=== PATIENT | male | born 1990 | race Two or more races ===

== ENCOUNTER → 2017-10-03 | Outpatient (CLI) | payer OTHER ==
[~2017-10-03] VITALS: Ht 160 cm; Wt 82.3 kg
[~2017-10-03] MED LIST: CHLORHEXIDINE GLUCONATE 2 % 1 PACK (2 CLOTHS) TOPICAL PRN; DEXAMETHASONE SOD PHOS 4 MG/ML VIAL IV ONE; DO NOT ADM ANY ANTICOAGULANT DRUGS PRN; ESMOLOL HCL 100 MG/10 ML VIAL IV ONE; GABA300C5 PO; GLYCOPYRROLATE 1 MG/5 ML SYRINGE IV PUSH ONE; HYDR-3516 PO; INSULIN HUMAN REGULAR 1,000 UNITS/10 ML VIAL SQ PRN; KETAMINE HCL 500 MG/5 ML VIAL ONE; LACTATED RINGER'S 1000 ML IV PRN; LIDOCAINE HCL 1% PF 5 ML AMPULE OTHER ONE; METOPROLOL TARTRATE 25 MG TAB PO PRN; OMEP40CA2 PO; ONDANSETRON HCL 4 MG/2 ML VIAL IV PUSH ONE; OXYT3.9D TOP; PHENYLEPH/NS 1000 MCG/10 ML SYR IV ONE; POVIDONE IODINE 5% (ANTISEPSIS KIT) 4 APPLICATIONS EACH NARE PRN; PROPOFOL 200 MG/20 ML AMP IV ONE; ROCURONIUM INJ 50 MG/5 ML SYRINGE IV PUSH ONE; SODIUM CHLORID 0.9% 500 ML IV PRN; SUGAMMADEX SODIUM 200 MG/2 ML VIAL IV PUSH ONE; TOVI4TAB PO; VITA20003 PO
--- NOTE | 2017-10-03 16:52 | GIPROC ---
[facility] [address] [facility]. [facility], [address] EGD PROCEDURE REPORT EXAM DATE: 10/03/2017 PATIENT NAME: Deandre Rodrigues MR #: [id number] BIRTHDATE: 1990 ATTENDING: Dustin Valdivia MD ORDER #: [id number] WEB UI DESIGNER: STATUS: outpatient INDICATIONS: The patient is a 27 yr old male here for an EGD due to periumbilical abdominal pain PROCEDURE PERFORMED: EGD w/ biopsy MEDICATIONS: Per Anesthesia and None. (General) TOPICAL ANESTHETIC: none CONSENT: The patient understands the risks and benefits of the procedure and understands that these risks include, but are not limited to: sedation, allergic reaction, infection, perforation and/or bleeding. Alternative means of evaluation and treatment include, among others: physical exam, x-rays, and/or surgical intervention. The patient elects to proceed with this endoscopic procedure. medical equipment was checked for proper function. Hand hygiene and appropriate measures for infection prevention was taken. After the risks, benefits and alternatives of the procedure were thoroughly explained, Informed consent was verified, confirmed and timeout was successfully executed by the treatment team. The patient was anesthetized with topical anesthesia and the Pentax EG-[id number] endoscope was introduced through the mouth and advanced to the third portion of the duodenum. Retroflexion was performed and was normal The gastroscope was then slowly withdrawn and removed. ESOPHAGUS: GE jx was at 35 cm. There was a short stricture at the gastroesophageal junction. The stricture was traversable with resistance. Multiple biopsies were taken in the distal and mid esophagus to rule out eosinophilic esophagitis. STOMACH: The mucosa of the stomach appeared normal. DUODENUM: The duodenal mucosa appeared normal. Cold forcep biopsies were taken in the 3rd portion. ADVERSE EVENTS: There were no complications. IMPRESSIONS: 1. GE jx was at 35 cm 2. There was a short stricture at the gastroesophageal junction; multiple biopsies were taken in the distal and mid esophagus to rule out eosinophilic esophagitis 3. The mucosa of the stomach appeared normal 4. Normal duodenal mucosa 5. Retroflexion was performed and was normal RECOMMENDATIONS: Colon today PATIENT CONDITION: stable DISPOSITION: Home REPEAT EXAM: Dustin Valdivia MD eSigned: Dustin Valdivia MD 10/03/2017 4:51 PM cc: PATIENT NAME: Deandre Rodrigues MR#: [id number]
--- NOTE | 2017-10-03 17:19 | GIPROC ---
[facility] [address] [facility]. [facility], [address] COLONOSCOPY PROCEDURE REPORT EXAM DATE: 10/03/2017 PATIENT NAME: Deandre Rodrigues MR #: [id number] BIRTHDATE: 1990 ENDOSCOPIST: Dustin Valdivia MD ORDER #: [id number] SHIFT STACKER: STATUS: outpatient INDICATIONS: The patient is a 27 yr old male here for a colonoscopy due to periumbilical abdominal pain and change in bowel habits PROCEDURE PERFORMED: Colonoscopy with biopsy MEDICATIONS: Per Anesthesia and None. PREP QUALITY: fair PREP TYPE:GoLytely ESTIMATED BLOOD LOSS: None CONSENT: The patient understands the risks and benefits of the procedure and understands that these risks include, but are not limited to: sedation, allergic reaction, infection, perforation and/or bleeding. Alternative means of evaluation and treatment include, among others: physical exam, x-rays, and/or surgical intervention. The patient elects to proceed with this endoscopic procedure. medical equipment was checked for proper function. Hand hygiene and appropriate measures for infection prevention was taken. After the risks, benefits and alternatives of the procedure were thoroughly explained, Informed consent was verified, confirmed and timeout was successfully executed by the treatment team. A digital exam was performed and revealed no abnormalities of the rectum The Pentax [id number] endoscope was introduced through the anus and advanced to the terminal ileum which was intubated for a short distance. The instrument was then slowly withdrawn as the colon was fully examined. COLON FINDINGS: The colonic mucosa appeared normal. Multiple biopsies were performed using cold forceps. Small internal hemorrhoids were found. Retroflexion was performed and was normal The scope was then completely withdrawn from the patient and the procedure terminated. PROCEDURE WITHDRAWAL TIME:13minutes ADVERSE EVENTS: There were no complications. IMPRESSIONS: 1. The colonic mucosa appeared normal; multiple biopsies were performed using cold forceps 2. Small internal hemorrhoids 3. Retroflexion was performed and was normal 4. Was performed 5. Revealed no abnormalities of the rectum RECOMMENDATIONS: 1. Await biopsy results. Biopsy results will not be ready for 7-10 days. If you don't hear from us in two weeks, call our office for results. 2. ROV 1 month RECALL: NONE Dustin Valdivia MD eSigned: Dustin Valdivia MD 10/03/2017 5:18 PM cc: PATIENT NAME: Deandre Rodrigues MR#: [id number]
[2017-10-03 18:00] VITALS: BP 115/64; PULSE 85; RESP 18; TEMP 97.8; O2SAT 98
== END ==
LOC: HSDC 13:12
PROVIDERS: ATTEND Internal Medicine Gastroenterology
DX: K22.2 Esophageal obstruction (principal); K21.0 Gastro-esophageal reflux disease with esophagitis; K64.8 Other hemorrhoids; R10.84 Generalized abdominal pain; R19.4 Change in bowel habit
CPT/HCPCS: 00740; 43239; 45380; 88305; J1100; J2370; J2405